=== PATIENT | female | born 1980 | race Caucasian/White ===

== ENCOUNTER 2019-02-06 11:41 | Emergency (ER) | payer OTHER ==
[~2019-02-06] VITALS: Ht 167.6 cm; Wt 62.1 kg
[~2019-02-06 11:41] MED LIST: CEFTIN250 MG PO; KETO10TA2 PO; NAPR500T14 PO; POLY119PG PO; PRENATAL 19 TA1 EAC1 PO; PREPLUS CA-FE1 EACH PO; ULTRACET PO
== END 2019-02-06 14:39 | disposition home or self-care (01) ==
LOC: ER 11:41
DX: S93.401A Sprain of unspecified ligament of right ankle, initial encounter (principal); X50.3XXA Overexertion from repetitive movements, initial encounter; Y93.89 Activity, other specified; Y92.89 Other specified places as the place of occurrence of the external cause; Y99.8 Other external cause status

== ENCOUNTER 2020-10-13 09:48 | Emergency (ER) | payer OTHER ==
[~2020-10-13] VITALS: Ht 165.1 cm; Wt 66.7 kg
[2020-10-13] MEDS ORDERED: METHIMAZOLE10 MG PO (10:02)
[2020-10-13] MEDS ORDERED: PYRIDIUM DS200 MG PO (16:05)
[2020-10-13] MEDS ORDERED: KETO10TA2 PO (16:05)
== END 2020-10-13 16:17 | disposition home or self-care (01) ==
LOC: ER 09:48
DX: N20.0 Calculus of kidney (principal)

== ENCOUNTER → 2021-02-03 | Emergency (ER) | payer OTHER ==
[~2021-02-03] VITALS: Ht 170.2 cm; Wt 68.0 kg
[~2021-02-03] MED LIST changes: +METHIMAZOLE10 MG PO; +ORPHENADRINE C100 MG PO; +PYRIDIUM DS200 MG PO; +VISTARIL50 MG PO
== END | disposition home or self-care (01) ==
LOC: ER 09:58
DX: R25.3 Fasciculation (principal)

== ENCOUNTER 2022-02-14 10:41 | Emergency (ER) | payer OTHER ==
[~2022-02-14] VITALS: Ht 167.6 cm; Wt 66.7 kg
[2022-02-14] MEDS ORDERED: MOTRIN IB200 M1 (11:45)
[2022-02-14] MEDS ORDERED: TAPAZOLE5 MG (11:45)
[2022-02-14] MEDS ORDERED: TAPAZOLE5 MG PO (11:45)
[2022-02-14] MEDS ORDERED: AMOXICILLIN500 MG PO (11:47)
[2022-02-14] MEDS ORDERED: NORFLEX100MG PO (15:42)
[2022-02-14] MEDS ORDERED: CYCLOBENZAPRINE10 MG PO (15:42)
[2022-02-14] MEDS ORDERED: NABUMETONE750 MG PO (15:42)
== END 2022-02-14 15:46 | disposition home or self-care (01) ==
LOC: ER 10:41
DX: M54.9 Dorsalgia, unspecified (principal)

== ENCOUNTER 2022-08-30 14:48 | Emergency (ER) | payer OTHER ==
[~2022-08-30] VITALS: Ht 167.6 cm; Wt 59.0 kg
[~2022-08-30 14:48] MED LIST changes: +AMOXICILLIN500 MG PO; +CYCLOBENZAPRINE10 MG PO; +MOTRIN IB200 M1; +NABUMETONE750 MG PO; +NORFLEX100MG PO; +TAPAZOLE5 MG; +TAPAZOLE5 MG PO
== END 2022-08-30 20:45 | disposition home or self-care (01) ==
LOC: ER 14:48
DX: R10.2 Pelvic and perineal pain (principal); D25.9 Leiomyoma of uterus, unspecified; N83.201 Unspecified ovarian cyst, right side

== ENCOUNTER 2022-10-15 10:36 | Emergency (ER) | payer OTHER ==
[~2022-10-15] VITALS: Ht 167.6 cm; Wt 63.5 kg
[2022-10-15] MEDS ORDERED: KETO10TA2 PO (15:37)
[2022-10-15] MEDS ORDERED: TAMS0.4C PO (15:37)
== END 2022-10-15 15:51 | disposition home or self-care (01) ==
LOC: ER 10:36
DX: N20.9 Urinary calculus, unspecified (principal)

== ENCOUNTER 2023-04-26 10:31 | Emergency (ER) | payer OTHER ==
[~2023-04-26] VITALS: Ht 167.6 cm; Wt 61.2 kg
[~2023-04-26 10:31] MED LIST changes: +TAMS0.4C PO
[2023-04-26 12:46] LABS: HEMATOCRIT 42.8 % (36.0-45.00); HEMOGLOBIN 14.3 g/dL (12.0-15.00); MEAN CELL VOLUME 92.8 fL (80.00-100.00); MEAN CORPUSCULAR HGB CONC 33.5 g/dl (32.0-36.0); PLATELET COUNT 182 K/uL (150-450); RED BLOOD COUNT 4.61 M/uL (4.00-6.00); RED CELL DISTRIBUTION WIDTH 14.9 % (11.5-14.5)
[2023-04-26 12:53] LABS: PH,URINE 5.5 (5.0-8.0); URINE APPEARANCE Clear; URINE BILIRRUBIN Negative (NEGATIVE); URINE BLOOD Negative; URINE COLOR Yellow; URINE GLUCOSE Negative (NEGATIVE); URINE LEUKOCYTE Negative; URINE NITRATE Negative; URINE PROTEIN Trace (NEGATIVE)
[2023-04-26 12:56] LABS: URINE BACTERIA 599.6 uL (0.0-1933); URINE EPITHELIAL CELLS 17.7 uL (0.0-38.8); URINE RBC 15.5 uL (0.0-20.8); URINE WBC 4.6 uL (0.0-23.2)
[2023-04-26 13:06] LABS: CALCIUM 8.9 mg/dL (8.5-10.1); CREATININE SERUM 0.64 mg/dL (0.55-1.02); GFR 102.78; POTASSIUM 3.93 mEq/L (3.5-5.1)
== END 2023-04-26 16:49 | disposition home or self-care (01) ==
LOC: ER 10:31
PROVIDERS: General Practice
DX: K52.89 Other specified noninfective gastroenteritis and colitis (principal); R11.10 Vomiting, unspecified

== ENCOUNTER 2023-08-17 14:52 | Emergency (ER) | payer OTHER ==
[~2023-08-17] VITALS: Ht 167.6 cm; Wt 60.3 kg
[2023-08-17 18:34] LABS: URINE APPEARANCE Clear; URINE BILIRRUBIN Negative (NEGATIVE); URINE BLOOD Small; URINE COLOR Yellow; URINE GLUCOSE Negative (NEGATIVE); URINE LEUKOCYTE Negative; URINE NITRATE Negative; URINE PROTEIN Negative (NEGATIVE); URINE UROBILINOGEN 0.2 E.U./dl
[2023-08-17 18:35] LABS: HEMOGLOBIN 13.8 g/dL (12.0-15.00); MEAN CELL VOLUME 90.6 fL (80.00-100.00); MEAN CORPUSCULAR HEMOGLOBIN 30.5 pg (27.00-32.0); MEAN CORPUSCULAR HGB CONC 33.7 g/dl (32.0-36.0); PLATELET COUNT 225 K/uL (150-450); RED BLOOD COUNT 4.53 M/uL (4.00-6.00); RED CELL DISTRIBUTION WIDTH 14.2 % (11.5-14.5)
[2023-08-17 18:38] LABS: URINE BACTERIA 16.3 uL (0.0-1933); URINE EPITHELIAL CELLS 15.2 uL (0.0-38.8); URINE RBC 13.3 uL (0.0-20.8); URINE WBC 4.4 uL (0.0-23.2)
[2023-08-17 19:11] LABS: D DIMER < 0.19 MG/L; INR 0.98; PARTIAL THROMBOPLASTIN TIME 30.5 SECONDS (22.0-34.0); PROTHROMBIN TIME 10.3 SECONDS (9.0-11.5)
[2023-08-17] MEDS ORDERED: ESTROGENS, CONJUGATED 25 MG VIAL IV ONE (21:15)
== END 2023-08-17 22:35 | disposition home or self-care (01) ==
LOC: ER 14:53
PROVIDERS: Emergency Medicine
DX: N93.9 Abnormal uterine and vaginal bleeding, unspecified (principal); D25.9 Leiomyoma of uterus, unspecified; N83.202 Unspecified ovarian cyst, left side

== ENCOUNTER 2023-08-25 19:56 | Emergency (ER) | payer OTHER ==
[~2023-08-25] VITALS: Ht 167.6 cm; Wt 60.3 kg
[2023-08-25 21:58] LABS: HEMOGLOBIN 13.7 g/dL (12.0-15.00); MEAN CORPUSCULAR HEMOGLOBIN 30.7 pg (27.00-32.0); MEAN CORPUSCULAR HGB CONC 33.4 g/dl (32.0-36.0); PLATELET COUNT 202 K/uL (150-450); RED BLOOD COUNT 4.45 M/uL (4.00-6.00)
[2023-08-25 22:25] LABS: INR 0.97; PARTIAL THROMBOPLASTIN TIME 28.8 SECONDS (22.0-34.0); PROTHROMBIN TIME 10.2 SECONDS (9.0-11.5)
[2023-08-25 22:29] LABS: ALBUMIN 4.3 gm/dL (3.4-5.0); BILIRUBIN TOTAL 0.37 mg/dL (0.3-1.2); CALCIUM 9.2 mg/dL (8.5-10.1); CREATININE SERUM 0.78 mg/dL (0.55-1.02); GFR 81.8; GLOBULINA 3.7 G/DL (2.4-3.5); POTASSIUM 3.93 mEq/L (3.5-5.1)
== END 2023-08-25 23:14 | disposition home or self-care (01) ==
LOC: ER 19:56
DX: N93.8 Other specified abnormal uterine and vaginal bleeding (principal)

== ENCOUNTER 2024-01-11 11:17 | Emergency (ER) | payer OTHER ==
[~2024-01-11] VITALS: Ht 167.6 cm; Wt 58.1 kg
[2024-01-11] MEDS ORDERED: ORPHENADRINE CITRATE 30 MG/ML AMPUL IM STA (12:22)
[2024-01-11] MEDS ORDERED: KETOROLAC TROMETHAMINE 60 MG VIAL IM SCH (12:30)
== END 2024-01-11 13:34 | disposition home or self-care (01) ==
LOC: ER 11:18
DX: S39.012A Strain of muscle, fascia and tendon of lower back, initial encounter (principal); S13.8XXA Sprain of joints and ligaments of other parts of neck, initial encounter